=== PATIENT | male | born 2000 | race Two or more races ===

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

== ENCOUNTER 2020-05-25 13:56 | Emergency (ER) | payer SELFPAY ==
[~2020-05-25] VITALS: Ht 172.7 cm; Wt 121.8 kg
--- NOTE | 2020-05-25 15:48 | RAD ---
Single view of the chest. 05/25/2020 2:59 PM Indication: Reason: COUGH, SOA X3 DAYS / Spl. Instructions: / History: Comparison: None Findings: There is no focal consolidation. There is no pleural effusion or pneumothorax. The cardiomediastinal silhouette and pulmonary vasculature are within normal limits. No acute osseous abnormalities are seen. Impression: No evidence of acute cardiopulmonary process. Electronically signed by: Damaso Dunlap MD (05/25/2020 3:46 PM) [id number]
[2020-05-25] MEDS ORDERED: KETOROLAC 30 MG/ML VIAL. IVP ONE (16:30)
[2020-05-25] MEDS ORDERED: methylPREDNISolone SOD SUCC PF 125 MG/2 ML VIAL. IV ONE (16:30)
[2020-05-25] MEDS ORDERED: AMPICILLIN/SULBACTAM 3 GM in IV NORMAL SALINE 100ML 100 ML IV ONE (16:30)
[2020-05-25] MEDS ORDERED: diphenhydrAMINE 50 MG/ML VIAL IVP ONE (16:45)
[2020-05-25] MEDS ORDERED: IV NORMAL SALINE 1000ML BAG 1,000 ML IV ONE (16:45)
[2020-05-25 17:11] LABS: BASO % 0 % (0-3); EOS % 0 % (0-3); HEMATOCRIT 46.4 % (39.0-53.0); HEMOGLOBIN 15.5 g/dL (13.0-17.5); LYMPH % 13 % (24-48); MEAN CORPUSCULAR HEMOGLOBIN 28 pg (25-35); MEAN CORPUSCULAR HGB CONC 33 g/dL (31-37); MEAN CORPUSCULAR VOLUME 83 fL (79-100); MONO # 1.7 x10^3/uL (0.0-1.1); MONO % 12 % (0-9); NEUT # 11.2 x10^3/uL (1.8-7.7); NEUT % 75 % (31-73); PLATELET COUNT 180 x10^3/uL (140-400); RED BLOOD COUNT 5.62 x10^6/uL (4.30-5.70)
[2020-05-25 17:23] LABS: CALCIUM 9.3 mg/dL (8.5-10.1); CREATININE 0.9 mg/dL (0.7-1.3); GFR 108.7; POTASSIUM 4.2 mmol/L (3.5-5.1)
--- NOTE | 2020-05-25 18:01 | PHYS DOC ---
Past Medical History Past Medical History: Asthma (GONZALEZ MARR DO) Past Surgical History: No Surgical History (GONZALEZ MARR DO) Smoking Status: Current Every Day Smoker Alcohol Use: Occasionally Drug Use: Marijuana Social History Narrative: LAST USED MARIJUANA 4 DAYS AGO (GONZALEZ MARR DO) General Adult EDM: Chief Complaint: FEVER HPI: HPI: Patient is a 19 year old male who presented to ER today for evaluation of sore throat, cough, fever, chills, nasal congestion for 3 days. Patient denies being exposed to anybody who tested positive for COVID-19. Patient denies any nausea vomiting, no abdominal pain. Patient complained of bilateral neck pain (GONZALEZ MARR DO) Review of Systems: Review of Systems: Constitutional: Positive for fever and chills. [] Eyes: Denies change in visual acuity. [] HENT: Positive for nasal congestion or sore throat. [] Respiratory: Positive for cough , no shortness of breath. [] Cardiovascular: Denies chest pain or edema. [] GI: Denies abdominal pain, nausea, vomiting, bloody stools or diarrhea. [] : Denies dysuria. [] Musculoskeletal: Denies back pain or joint pain. [] Integument: Denies rash. [] Neurologic: Denies headache, focal weakness or sensory changes. [] Endocrine: Denies polyuria or polydipsia. [] Lymphatic: Denies swollen glands. [] Psychiatric: Denies depression or anxiety. [] (GONZALEZ MARR DO) Heart Score: Risk Factors: Risk Factors: DM, Current or recent (<one month) smoker, HTN, HLP, family history of CAD, obesity. Risk Scores: Score 0 - 3: 2.5% MACE over next 6 weeks - Discharge Home Score 4 - 6: 20.3% MACE over next 6 weeks - Admit for Clinical Observation Score 7 - 10: 72.7% MACE over next 6 weeks - Early Invasive Strategies (GONZALEZ MARR DO) Current Medications: Current Medications Medications (Trade) Dose Ordered Sig/Miguelito Start Time Stop Time Status Last Admin Dose Admin Ampicillin Sodium/ Sulbactam Sodium 3 gm/Sodium Chloride 100 ml @ 200 mls/hr 1X ONCE 05/25/20 16:30 05/25/20 16:59 DC 05/25/20 16:50 200 MLS/HR Diphenhydramine HCl (Benadryl) 25 mg 1X ONCE 05/25/20 16:45 05/25/20 16:46 DC 05/25/20 16:49 25 MG Ketorolac Tromethamine (Toradol 30mg Vial) 30 mg 1X ONCE 05/25/20 16:30 05/25/20 16:33 DC 05/25/20 16:49 30 MG Methylprednisolone Sodium Succinate (SOLU-Medrol 125MG VIAL) 125 mg 1X ONCE 05/25/20 16:30 05/25/20 16:33 DC 05/25/20 16:49 125 MG Sodium Chloride 1,000 ml @ 1,000 mls/hr 1X ONCE 05/25/20 16:45 05/25/20 17:44 DC 05/25/20 16:50 1,000 MLS/HR (GONZALEZ MARR DO) Allergies: Allergies: Allergies Coded Allergies Type Severity Reaction Last Updated Verified shellfish derived Allergy Intermediate Swelling 04/03/17 Yes (GONZALEZ MARR DO) Physical Exam: PE: Constitutional: Well developed, well nourished, no acute distress, non-toxic appearance. [] HENT: Normocephalic, atraumatic, bilateral external ears normal, oropharynx ERYTHEMA, BILATERAL TONSILLARY HYPERTROPHY WITH EXUDATION, UVULA DEVIATED TO LEFT SIDE,nose normal. [] Eyes: PERRLA, EOMI, conjunctiva normal, no discharge. [] Neck: Normal range of motion, BILATERAL ANTERIOR LYMPH NODES SWELLING AND TENDER TO PALPATION. Cardiovascular:Heart rate regular rhythm, no murmur [] Lungs & Thorax: Bilateral breath sounds clear to auscultation [] Abdomen: Bowel sounds normal, soft, no tenderness, no masses, no pulsatile masses. [] Skin: Warm, dry, no erythema, no rash. [] Back: No tenderness, no CVA tenderness. [] Extremities: No tenderness, no cyanosis, no clubbing, ROM intact, no edema. [] Neurologic: Alert and oriented X 3, normal motor function, normal sensory function, no focal deficits noted. [] Psychologic: Affect normal, judgement normal, mood normal. [] (GONZALEZ MARR DO) Current Patient Data: Labs: Laboratory Tests Test 05/25/20 16:48 White Blood Count 15.0 x10^3/uL (4.0-11.0) H Red Blood Count 5.62 x10^6/uL (4.30-5.70) Hemoglobin 15.5 g/dL (13.0-17.5) Hematocrit 46.4 % (39.0-53.0) Mean Corpuscular Volume 83 fL (79-100) Mean Corpuscular Hemoglobin 28 pg (25-35) Mean Corpuscular Hemoglobin Concent 33 g/dL (31-37) Red Cell Distribution Width 14.0 % (11.5-14.5) Platelet Count 180 x10^3/uL (140-400) Neutrophils (%) (Auto) 75 % (31-73) H Lymphocytes (%) (Auto) 13 % (24-48) L Monocytes (%) (Auto) 12 % (0-9) H Eosinophils (%) (Auto) 0 % (0-3) Basophils (%) (Auto) 0 % (0-3) Neutrophils # (Auto) 11.2 x10^3/uL (1.8-7.7) H Lymphocytes # (Auto) 2.0 x10^3/uL (1.0-4.8) Monocytes # (Auto) 1.7 x10^3/uL (0.0-1.1) H Eosinophils # (Auto) 0.0 x10^3/uL (0.0-0.7) Basophils # (Auto) 0.0 x10^3/uL (0.0-0.2) Sodium Level 138 mmol/L (136-145) Potassium Level 4.2 mmol/L (3.5-5.1) Chloride Level 101 mmol/L (98-107) Carbon Dioxide Level 27 mmol/L (21-32) Anion Gap 10 (6-14) Blood Urea Nitrogen 9 mg/dL (8-26) Creatinine 0.9 mg/dL (0.7-1.3) Estimated GFR (Cockcroft-Gault) 108.7 Glucose Level 99 mg/dL (70-99) Calcium Level 9.3 mg/dL (8.5-10.1) Laboratory Tests 05/25/20 16:48 Laboratory Tests 05/25/20 16:48 Vital Signs: Vital Signs Date Time Temp Pulse Resp B/P (MAP) Pulse Ox O2 Delivery O2 Flow Rate FiO2 05/25/20 14:54 98.6 92 18 139/72 (94) 98 Room Air 98.6 (GONZALEZ MARR DO) Labs: Laboratory Tests Test 05/25/20 16:48 White Blood Count 15.0 x10^3/uL Red Blood Count 5.62 x10^6/uL Hemoglobin 15.5 g/dL Hematocrit 46.4 % Mean Corpuscular Volume 83 fL Mean Corpuscular Hemoglobin 28 pg Mean Corpuscular Hemoglobin Concent 33 g/dL Red Cell Distribution Width 14.0 % Platelet Count 180 x10^3/uL Neutrophils (%) (Auto) 75 % Lymphocytes (%) (Auto) 13 % Monocytes (%) (Auto) 12 % Eosinophils (%) (Auto) 0 % Basophils (%) (Auto) 0 % Neutrophils # (Auto) 11.2 x10^3/uL Lymphocytes # (Auto) 2.0 x10^3/uL Monocytes # (Auto) 1.7 x10^3/uL Eosinophils # (Auto) 0.0 x10^3/uL Basophils # (Auto) 0.0 x10^3/uL Sodium Level 138 mmol/L Potassium Level 4.2 mmol/L Chloride Level 101 mmol/L Carbon Dioxide Level 27 mmol/L Anion Gap 10 Blood Urea Nitrogen 9 mg/dL Creatinine 0.9 mg/dL Estimated GFR (Cockcroft-Gault) 108.7 Glucose Level 99 mg/dL Calcium Level 9.3 mg/dL Current Medications Medications (Trade) Dose Ordered Sig/Miguelito Route PRN Reason Start Time Stop Time Status Last Admin Dose Admin Ampicillin Sodium/ Sulbactam Sodium 3 gm/Sodium Chloride 100 ml @ 200 mls/hr 1X ONCE IV 05/25/20 16:30 05/25/20 16:59 DC 05/25/20 16:50 Methylprednisolone Sodium Succinate (SOLU-Medrol 125MG VIAL) 125 mg 1X ONCE IV 05/25/20 16:30 05/25/20 16:33 DC 05/25/20 16:49 Ketorolac Tromethamine (Toradol 30mg Vial) 30 mg 1X ONCE IVP 05/25/20 16:30 05/25/20 16:33 DC 05/25/20 16:49 Diphenhydramine HCl (Benadryl) 25 mg 1X ONCE IVP 05/25/20 16:45 05/25/20 16:46 DC 05/25/20 16:49 Sodium Chloride 1,000 ml @ 1,000 mls/hr 1X ONCE IV 05/25/20 16:45 05/25/20 17:44 DC 05/25/20 16:50 Iohexol (Omnipaque 300 Mg/ml) 70 ml 1X ONCE IV 05/25/20 18:30 05/25/20 18:31 DC 05/25/20 18:28 Info (CONTRAST GIVEN -- Rx MONITORING) 1 each PRN DAILY PRN MC SEE COMMENTS 05/25/20 18:30 05/27/20 18:29 Vital Signs: Vital Signs Date Time Temp Pulse Resp B/P (MAP) Pulse Ox O2 Delivery O2 Flow Rate FiO2 05/25/20 14:54 98.6 92 18 139/72 (94) 98 Room Air 98.6 (BRIANA LÓPEZ DO) EKG: EKG: [] (GONZALEZ MARR DO) Radiology/Procedures: Radiology/Procedures: [] (GONZALEZ MARR DO) Radiology/Procedures: [facility] [address] [place] [address] IMAGING REPORT Signed PATIENT: MARIA D CAOR ACCOUNT: [id number] : 2000 LOCATION: ER AGE: 19 SEX: M EXAM STATUS: REG ER ORD. PHYSICIAN: GONZALEZ MARR DO REASON: NECK PAIN, SORETHROAT, TONSILLAR SWELLING PROCEDURE: CT SOFT TISSUE NECK W/CONTRAST CT neck with contrast Contrast: 70 mL Omnipaque 300 intravenous contrast. HISTORY: Headache, body aches, sore throat, fever. Tonsillar swelling. FINDINGS: Symmetric enlargement of the palatine tonsils resulting in mild/moderate narrowing the airway, no rim-enhancing tonsillar abscess or discrete mass lesion evident. There is mild enlargement of the nasopharyngeal adenoids. Mild enlargement of the lingual tonsil. No narrowing or lesion of the larynx or subglottic trachea evident. Thyroid gland unremarkable. There is a large bilateral upper jugular chain adenopathy largest lymph nodes measuring up to 2.5 cm in size. Lung bases and bones are unremarkable. IMPRESSION: 1. Moderate enlargement of the palatine tonsils with mild enlargement of the lingual tonsil and pharyngeal adenoids, contributing to mild/moderate airway narrowing, likely tonsillitis. No tonsillar abscess evident. 2. Bilateral upper jugular chain adenopathy presumably reactive lymphadenitis although the largest lymph node measures 2.5 cm and due to the large size of these lymph nodes pathologic adenopathy due to neoplasia is not excluded. Consider short-term follow-up imaging in 2-3 months to document this resolves over time. Exposure: One or more of the following individualized dose reduction techniques were utilized for this examination: 1. Automated exposure control 2. Adjustment of the mA and/or kV according to patient size 3. Use of iterative reconstruction technique Electronically signed by: Cameron Metz MD (05/25/2020 6:45 PM) [facility] DICTATED and SIGNED BY: CAMERON METZ MD DATE: 05/25/201844 (BRIANA LÓPEZ DO) Course & Med Decision Making: Course & Med Decision Making Pertinent Labs and Imaging studies reviewed. (See chart for details) Patient has been endorsed to the incoming physician at shift change, Dr. López, waiting for CT scan of neck. (GONZALEZ MARR DO) Course & Med Decision Making I have signed out the patient's emergency department care to Dr. Marr. We discussed the history, physical exam findings, completed and pending laboratory results and imaging studies. We have also discussed the current treatment plan and expected clinical course. Please refer to chart for the patient's remaining emergency department course, final disposition, and clinical impression(s). In short patient is a 19-year-old male who presents with chief complaint of sore throat and some pain with swallowing over the past [address] imaging was obtained to rule out peritonsillar abscess. No signs of drainable fluid collection noted on CT imaging. Bilateral tonsillitis noted. Upon my examination patient appears nontoxic and overall well. No dysphonia or trismus appreciated on my exam. He has full range of motion. My tonsillar exam he does have bilateral tonsillar exudates. No delfino uvular deviation is appreciated on my exam. Patient states that he is able to swallow liquids. He was given a first dose of antibiotics. Rapid strep testing negative. Overall I do feel the patient is appropriate for discharge home. No signs of airway obstruction he states he has no difficulty breathing. He states he does have family was at home who can watch him closely. Patient was given a dose of oral Decadron here for swelling. He will be discharged home with antibiotics for tonsillitis. Strict return precautions were discussed and understood. Instructed to follow- up with his primary care physician in the next 1 to 2 days. Stable for discharge home. (BRIANA LÓPEZ DO) Dragon Disclaimer: Dragon Disclaimer: This electronic medical record was generated, in whole or in part, using a voice recognition dictation system. (GONZALEZ MARR DO) Departure Departure Impression: Primary Impression: Acute tonsillitis Qualified Codes: J03.90 - Acute tonsillitis, unspecified Disposition: 01 HOME, SELF-CARE Condition: STABLE Referrals: NO PCP (PCP) Patient Instructions: Peritonsillar Abscess, Tonsillitis Additional Instructions: Please follow-up with your primary care physician in the next 1 to 2 days. [facility] [address] [place] [address] [facility] [address] [place] [address] [facility] [address] [facility] [place] [address] [facility] [address] [place] [address] [facility] [address] [place] [address] [facility] [address] [place] [address] [facility] [address] [place] [address] [facility] [address] [place] [address] [facility] [address] [place] [address] [facility] [address] [place] [address] Scripts Ibuprofen (IBUPROFEN) 600 Mg Tablet 600 MG PO PRN Q6HRS PRN for PAIN, #20 TAB take with food or milk Prov: BRIANA LÓPEZ DO 05/25/20 Penicillin V Potassium (PENICILLIN V POTASSIUM) 500 Mg Tablet 1 TAB PO BID for 10 Days, #20 TAB Prov: BRIANA LÓPEZ DO 05/25/20 Justicifation of Admission Dx: Justifications for Admission: Justification of Admission Dx: N/A (GONZALEZ MARR DO) Justification of Admission Dx: N/A (BRIANA LÓPEZ DO) GONZALEZ MARR DO May 25, 2020 18:01 BRIANA LÓPEZ DO May 25, 2020 19:01
[2020-05-25] MEDS ORDERED: IOHEXOL 300 MG/ML 100ML VIAL. IV ONE (18:30)
[2020-05-25] MEDS ORDERED: CONTRAST GIVEN. MC PRN (18:30)
--- NOTE | 2020-05-25 18:48 | RAD ---
CT neck with contrast Contrast: 70 mL Omnipaque 300 intravenous contrast. HISTORY: Headache, body aches, sore throat, fever. Tonsillar swelling. FINDINGS: Symmetric enlargement of the palatine tonsils resulting in mild/moderate narrowing the airway, no rim-enhancing tonsillar abscess or discrete mass lesion evident. There is mild enlargement of the nasopharyngeal adenoids. Mild enlargement of the lingual tonsil. No narrowing or lesion of the larynx or subglottic trachea evident. Thyroid gland unremarkable. There is a large bilateral upper jugular chain adenopathy largest lymph nodes measuring up to 2.5 cm in size. Lung bases and bones are unremarkable. IMPRESSION: 1. Moderate enlargement of the palatine tonsils with mild enlargement of the lingual tonsil and pharyngeal adenoids, contributing to mild/moderate airway narrowing, likely tonsillitis. No tonsillar abscess evident. 2. Bilateral upper jugular chain adenopathy presumably reactive lymphadenitis although the largest lymph node measures 2.5 cm and due to the large size of these lymph nodes pathologic adenopathy due to neoplasia is not excluded. Consider short-term follow-up imaging in 2-3 months to document this resolves over time. Exposure: One or more of the following individualized dose reduction techniques were utilized for this examination: 1. Automated exposure control 2. Adjustment of the mA and/or kV according to patient size 3. Use of iterative reconstruction technique Electronically signed by: Joey Metz MD (05/25/2020 6:45 PM) [facility]
[2020-05-25] MEDS ORDERED: DEXAMETHASONE SOD PHOS 20 MG/5 ML VIAL. PO ONE (19:00)
[2020-05-25] MEDS ORDERED: IBUP-1007 PO (19:00)
[2020-05-25] MEDS ORDERED: PENI500T PO (19:00)
[2020-05-25 19:04] VITALS: BP 146/76
--- NOTE | 2020-05-27 10:10 | NUR ---
IP: Pt not available. Legt message to have pt return call so I can give him his COVID results.
--- NOTE | 2020-05-27 10:26 | NUR ---
IP: Pt returned call. I informed him of negative COVID results. Pt still having difficulty with sore throat. Encouraged him to seek a PCP or return to the ED if needed. Pt verbalized understanding.
== END 2020-05-25 19:05 | disposition home or self-care (01) ==
LOC: ER 13:56
DX: J03.90 Acute tonsillitis, unspecified (principal); Z20.828 Contact with and (suspected) exposure to other viral communicable diseases; J45.909 Unspecified asthma, uncomplicated; F17.200 Nicotine dependence, unspecified, uncomplicated; Z91.013 Allergy to seafood
CPT/HCPCS: 36415; 70491; 71045; 80048; 85025; 87070; 87880; 96365; 96375; 99285; J0295; J1100; J1200; J1885; J2930; J7030; Q9967; U0003

== ENCOUNTER 2020-05-28 00:12 | Emergency (ER) | payer SELFPAY ==
[~2020-05-28] VITALS: Ht 172.7 cm; Wt 120.0 kg
[~2020-05-28 00:12] MED LIST: IBUP-1007 PO; PENI500T PO
[2020-05-28] MEDS ORDERED: DEXAMETHASONE SOD PHOS 20 MG/5 ML VIAL. IM ONE (01:15)
[2020-05-28] MEDS ORDERED: BENZ1LOZ48 PO (03:06)
--- NOTE | 2020-05-28 03:06 | PHYS DOC ---
Past Medical History Past Medical History: Asthma Past Surgical History: No Surgical History Smoking Status: Current Every Day Smoker Alcohol Use: Occasionally Drug Use: Marijuana General Adult EDM: Chief Complaint: DENTAL PROBLEM HPI: HPI: 19-year-old male who denies any significant past medical history presents to the ED after patient was seen in the ED 3 days ago with complaints of worsening sore throat. Patient was started on amoxicillin but reports he does not have money to pick it up. Girlfriend is paid tomorrow and states he could order picker his medication tomorrow. Denies any worsening pain, swelling, changes in speech or inability to eat or drink. Review of Systems: Review of Systems: Constitutional: Denies fever or chills. [] Eyes: Denies change in visual acuity. [] HENT: Denies nasal congestion or sore throat. [] Respiratory: Denies cough or shortness of breath. [] Cardiovascular: Denies chest pain or edema. [] GI: Denies abdominal pain, nausea, vomiting, bloody stools or diarrhea. [] : Denies dysuria. [] Musculoskeletal: Denies back pain or joint pain. [] Integument: Denies rash. [] Neurologic: Denies headache, focal weakness or sensory changes. [] Endocrine: Denies polyuria or polydipsia. [] Lymphatic: Denies swollen glands. [] Psychiatric: Denies depression or anxiety. [] Heart Score: Risk Factors: Risk Factors: DM, Current or recent (<one month) smoker, HTN, HLP, family history of CAD, obesity. Risk Scores: Score 0 - 3: 2.5% MACE over next 6 weeks - Discharge Home Score 4 - 6: 20.3% MACE over next 6 weeks - Admit for Clinical Observation Score 7 - 10: 72.7% MACE over next 6 weeks - Early Invasive Strategies Current Medications: Current Medications Medications (Trade) Dose Ordered Sig/Miguelito Start Time Stop Time Status Last Admin Dose Admin Dexamethasone Sodium Phosphate (Decadron) 10 mg 1X ONCE 05/28/20 01:15 05/28/20 01:16 DC 05/28/20 02:03 10 MG Allergies: Allergies: Allergies Coded Allergies Type Severity Reaction Last Updated Verified shellfish derived Allergy Intermediate Swelling 04/03/17 Yes Physical Exam: PE: Constitutional: Well developed, well nourished, no acute distress, non-toxic appearance. [] HENT: Normocephalic, atraumatic, bilateral external ears normal, oropharynx moist, no oral exudates, nose normal. [] Eyes: PERRLA, EOMI, conjunctiva normal, no discharge. [] Neck: Normal range of motion, no tenderness, supple, no stridor. [] Cardiovascular:Heart rate regular rhythm, no murmur [] Lungs & Thorax: Bilateral breath sounds clear to auscultation [] Abdomen: Bowel sounds normal, soft, no tenderness, no masses, no pulsatile masses. [] Skin: Warm, dry, no erythema, no rash. [] Back: No tenderness, no CVA tenderness. [] Extremities: No tenderness, no cyanosis, no clubbing, ROM intact, no edema. [] Neurologic: Alert and oriented X 3, normal motor function, normal sensory fun ction, no focal deficits noted. [] Psychologic: Affect normal, judgement normal, mood normal. [] Current Patient Data: Vital Signs: Vital Signs Date Time Temp Pulse Resp B/P (MAP) Pulse Ox O2 Delivery O2 Flow Rate FiO2 05/28/20 00:47 99.3 91 20 142/58 (86) 98 Room Air 99.3 EKG: EKG: [] Radiology/Procedures: Radiology/Procedures: [] Course & Med Decision Making: Course & Med Decision Making Pertinent Labs and Imaging studies reviewed. (See chart for details) [] Dragon Disclaimer: Dragon Disclaimer: This electronic medical record was generated, in whole or in part, using a voice recognition dictation system. Departure Departure Impression: Primary Impression: Acute tonsillitis Additional Impression: Noncompliance with medication regimen Disposition: 01 HOME, SELF-CARE Condition: STABLE Referrals: NO PCP (PCP) Patient Instructions: Tonsillitis Additional Instructions: [facility] [address], [id number], [place] [address] EMERGENCY DEPARTMENT GENERAL DISCHARGE INSTRUCTIONS Thank you for coming to [facility] Emergency Department (ED) today and trusting us with you care. We trust that you had a positive experience in our Emergency Department. If you wish to speak to the department management, you may call the Director at [phone]. YOUR FOLLOW UP INSTRUCTIONS ARE FOLLOWS: 1. Do you have a private Doctor? If you do not have a private doctor, please ask for a resource list of physicians or clinics that may be able to assist you with follow up care. 2. The Emergency Physicain has interpreted your x-rays. The X-Ray specialist will also review them. If there is a change in the findings, you will be notified in 48 hours when at all possible. 3. A lab test or culture has been done, your results will be reviewed and you will be notified if you need a change in treatment. ADDITIONAL INSTRUCTIONS AND INFORMATION: 1. Your care today has been supervised by a physician who is specially trained in emergency care. Many problems require more than one evaluation for a complete diagnosis and treatment. We recommend that you schedule your follow up appointment as recommended to ensure complete treatment of you illness or injury. If you are unable to obtain follow up care and continue to have a problem, or if your condition worsens, we recommend that you return to the ED. 2. We are not able to safely determine your condition over the phone nor are we able to give sound medical advice over the phone. For these safety reasons, if you call for medical advice we will ask you to come to the ED for further evaluation. 3. If you have any questions regarding these discharge instructions please call the ED at [phone]. SAFETY INFORMATION: In the interest of safety, wellness, and injury prevention; we encourage you to wear your sealbelt, if you smoke; quite smoking, and we encourage family to use a protective helmet for bicycling and other sporting events that present an increased risk for head injury. IF YOUR SYMPTOMS WORSEN OR NEW SYMPTOMS DEVELOP, OR YOU HAVE CONCERNS ABOUT YOUR CONDITION; OR IF YOUR CONDITION WORSENS WHILE YOU ARE WAITING FOR YOUR FOLLOW UP APPOINTMENT; EITHER CONTACT YOUR PRIMARY CARE DOCTOR, THE PHYSICIAN WHOSE NAME AND NUMBER YOU WERE GIVEN, OR RETURN TO THE ED IMMEDIATELY. Scripts Benzocaine/Menthol (CEPACOL SORE THROAT LOZENGE) 1 Each Lozenge 1 TAB PO Q4HRS for sore throat for 3 Days, #18 TAB 0 Refills Prov: SHENA GRIFFIN DO 05/28/20 Justicifation of Admission Dx: Justifications for Admission: Justification of Admission Dx: N/A SHENA GRIFFIN DO May 28, 2020 03:06
[2020-05-28 03:26] VITALS: BP 133/65
[2020-05-28] MEDS ORDERED: AMOXICILLIN 250 MG CAPSULE. PO ONE (03:30)
== END 2020-05-28 03:26 | disposition home or self-care (01) ==
LOC: ER 00:12
DX: J03.90 Acute tonsillitis, unspecified (principal); J45.909 Unspecified asthma, uncomplicated; F17.200 Nicotine dependence, unspecified, uncomplicated; Z91.14 Patient's other noncompliance with medication regimen; Z91.013 Allergy to seafood
CPT/HCPCS: 96372; 99284; J1100